=== PATIENT | female | born 1985 | race African-American/Black ===

== ENCOUNTER 2017-04-01 07:57 | Emergency (ER) | payer MEDICAID, OTHER ==
[~2017-04-01] VITALS: Ht 165.1 cm; Wt 95.0 kg
[~2017-04-01 07:57] MED LIST: TRAZ-132
[2017-04-01] MEDS ORDERED: IBUPROFEN 600MG TABLET PO ONE (10:00)
[2017-04-01 10:25] VITALS: BP 119/78
[2017-04-01] MEDS ORDERED: DIAZEPAM 5 MG TABLET PO ONE (11:00)
== END 2017-04-01 12:17 | disposition home or self-care (01) ==
LOC: ER 08:20
DX: M79.641 Pain in right hand (principal); M25.512 Pain in left shoulder; F17.200 Nicotine dependence, unspecified, uncomplicated; Z88.0 Allergy status to penicillin; Z98.890 Other specified postprocedural states; V43.52XA Car driver injured in collision with other type car in traffic accident, initial encounter; Y93.89 Activity, other specified; Y92.488 Other paved roadways as the place of occurrence of the external cause
CPT/HCPCS: 73030; 73130; 81025; 99284

== ENCOUNTER 2021-11-26 11:48 | Emergency (ER) | payer MEDICAID ==
[~2021-11-26] VITALS: Ht 165.1 cm; Wt 72.0 kg
[~2021-11-26 11:48] MED LIST changes: -TRAZ-132; +TRAZ-252
[2021-11-26 12:02] VITALS: BP 116/87
[2021-11-26] MEDS ORDERED: KETOROLAC 30MG/ML VIAL IM ONE (14:45)
[2021-11-26] MEDS ORDERED: NAPR-1176 MT (15:28)
== END 2021-11-26 15:49 | disposition home or self-care (01) ==
LOC: ER 11:54
DX: M25.561 Pain in right knee (principal); G40.909 Epilepsy, unspecified, not intractable, without status epilepticus; Z87.828 Personal history of other (healed) physical injury and trauma; Z98.890 Other specified postprocedural states; Z88.0 Allergy status to penicillin
CPT/HCPCS: 73562; 81025; 96372; 99283; J1885